=== PATIENT | female | born 1995 | race African-American/Black ===

== ENCOUNTER 2021-05-24 18:38 | Observation (INO) ==
[2021-05-24] MEDS ORDERED: SODIUM CHLORIDE 0.9% 1,000 ML IV STA (20:01)
[2021-05-24] MEDS ORDERED: ONDANSETRON 4 MG/2 ML VIAL IV STA (20:01)
[2021-05-24 20:12] LABS: Bacteria,Urine Occasional /HPF (Few); Bilirubin,Urine Negative (Negative); Blood, Urine Negative (Negative); Glucose,Urine (UA) Negative (Negative); Ketones,Urine 20 mg/dL (Negative); Mucus,Urine Many /LPF (Occasional); Nitrite,Urine Negative (Negative); Protein,Urine 100 MG/DL; RBC,Urine 3 /HPF (0-4); Squamous Epithelial Cell,Urine Moderate /HPF (0-10); Urine Appearance Slightly Hazy (Clear); Urine Color Amber (Yellow); Urine Specific Gravity 1.025 (1.001-1.035)
[2021-05-24 20:26] LABS: Basophils % 0.3 % (0.0-0.8); Eosinophils % 0.2 % (0.00-10.9); Hematocrit 41.4 VOL% (35.7-47.0); Hemoglobin 15.1 GM/DL (12.0-16.0); Immature Granulocytes % 0.2 %; Immature Granulocytes Absolute 0.01 #; Lymphocytes # 1.3 10*3/uL (1.4-4.0); Mean Corpuscular HGB Conc 36.5 GM/DL (32-36); Mean Corpuscular Volume 84.8 FL (87-102); Mean Platelet Volume 9.2 FL (9.6-12.0); Monocytes % 9.8 % (1.7-12.7); Neutrophils % 68.5 % (38.7-73.9); Platelet Count 319 T/CUMM (130-400); Red Blood Count 4.88 MC/CUMM (3.8-5.5); Red Cell Distribution Width 11.6 % (9.3-17.3); White Blood Count 6.1 T/CUMM (4-12)
[2021-05-24 20:42] LABS: Albumin 4.3 G/DL (3.4-5.0); Bilirubin,Total 0.7 MG/DL (0.20-1.00); Calcium 9.5 MG/DL (8.5-10.1); Osmolality,Calculated 261.5 MOS/KG (273-304); Potassium 2.8 MMOL/L (3.5-5.1)
[2021-05-24] MEDS ORDERED: PANTOPRAZOLE 40 MG VIAL IV STA (20:58)
[2021-05-24] MEDS ORDERED: METOCLOPRAMIDE 10 MG/2 ML VIAL IV STA (20:58)
[2021-05-24] MEDS ORDERED: POTASSIUM CHLORIDE RIDER 10 MEQ/100 ML PREMIX IV ONE (21:09)
[2021-05-24] MEDS ORDERED: IBUPROFEN 800 MG TABLET PO PRN (21:37)
[2021-05-24] MEDS ORDERED: MAGNESIUM HYDROXIDE SUSP 30 ML UDCUP PO PRN (21:37)
[2021-05-24] MEDS ORDERED: BISACODYL 10 MG SUPP RECTAL PRN (21:37)
[2021-05-24] MEDS ORDERED: ONDANSETRON 4 MG/2 ML VIAL IV PRN ×2 (21:37→22:49)
[2021-05-24] MEDS ORDERED: SCOPOLAMINE 1.5 MG PATCH TRANSDERM ONE (21:44)
[2021-05-24 21:57] LABS: Bacteria Wet Mount Few /HPF; Epithelial Cell Wet Mount Many /HPF (Few/HPF); RBC Wet Mount RARE /HPF; WBC Wet Mount RARE /HPF
[2021-05-24 21:58] LABS: Clue Cells None Seen /HPF (None Seen); Trichomonas Wet Mount None Seen /HPF (None Seen); Yeast Wet Mount None Seen /HPF (None Seen)
[2021-05-24] MEDS ORDERED: LACTATED RINGERS 1,000 ML IV SCH (22:00)
[2021-05-24] MEDS: LACTATED RINGERS 1,000 ML IV SCH (22:55)
[2021-05-24] MEDS: POTASSIUM CHLORIDE RIDER 10 MEQ/100 ML PREMIX IV SCH (23:37)
[2021-05-25] MEDS ORDERED: INFLUENZA VIRUS VACCINE 0.5 ML SYRINGE IM ONE (00:44)
[2021-05-25] MEDS: POTASSIUM CHLORIDE RIDER 10 MEQ/100 ML PREMIX IV SCH ×2 (01:09→02:32)
[2021-05-25] MEDS: LACTATED RINGERS 1,000 ML IV SCH ×2 (05:42→13:01)
[2021-05-25] MEDS: DOCUSATE SODIUM 100 MG CAPSULE PO SCH ×2 (08:52→20:50)
[2021-05-25] MEDS: ACETAMINOPHEN 325 MG TABLET PO PRN (11:56)
[2021-05-25] MEDS: SODIUM CHLOR 0.9% KCL 20 MEQ 20 MEQ/1,000 ML BAG IV SCH (18:23)
[2021-05-26] MEDS: SODIUM CHLOR 0.9% KCL 20 MEQ 20 MEQ/1,000 ML BAG IV SCH (02:36)
[2021-05-26] MEDS: ACETAMINOPHEN 325 MG TABLET PO PRN (03:53)
[2021-05-26 06:04] LABS: Albumin 2.6 G/DL (3.4-5.0); Bilirubin,Total 0.5 MG/DL (0.20-1.00); Osmolality,Calculated 262.2 MOS/KG (273-304); Potassium 3.1 MMOL/L (3.5-5.1); Total Protein 5.6 G/DL (6.4-8.2)
[2021-05-26 08:31] VITALS: BP 103/67
[2021-05-26] MEDS: DOCUSATE SODIUM 100 MG CAPSULE PO SCH (09:27)
[2021-05-27] MEDS ORDERED: SCOPOLAMINE 1.5 MG PATCH TRANSDERM SCH (09:00)
== END 2021-05-26 11:21 | disposition home or self-care (01) ==
LOC: N.EDINP 18:38 → N.ED 18:38 → N.OB 22:27
PROVIDERS: ADMIT Obstetrics & Gynecology; ATTEND Obstetrics & Gynecology